=== PATIENT | female | born 1995 | race Caucasian/White ===

== ENCOUNTER 2022-10-26 16:17 | Emergency (ER) | payer OTHER ==
[~2022-10-26] VITALS: Ht 149.8 cm; Wt 63.5 kg
[2022-10-26 16:51] LABS: BASO % 0.2 % (0.0-1.0); EOS # 0.1 10*3/uL (0.0-0.4); EOS % 1.5 % (1.0-4.0); HEMATOCRIT 36.2 % (37.0-47.0); LYMPH % 37.7 % (27.0-41.0); MEAN CELL VOLUME 92.8 fl (81.0-99.0); MEAN CORPUSCULAR HGB CONC 32.3 g/dl (33.0-37.0); MEAN PLATELET VOLUME 9.6 fl (9.6-12.3); MONO # 0.8 10*3/uL (0.1-1.0); MONO % 10.3 % (3.0-9.0); NEUT % 50.3 % (47.0-73.0); PLATELET COUNT AUTOMATED 345 10*3/uL (130-400); RED CELL DISTRI WIDTH 14.2 % (0-14.5)
[2022-10-26 17:13] LABS: ALKALINE PHOSPHATASE 81 U/L (46-116); BUN 7 mg/dl (9-23); CHLORIDE 105 mmol/L (98-107); LIPASE 28 U/L (12-53); POTASSIUM 3.7 mmol/L (3.4-5.1); SGPT/ALT 25 U/L (10-49); TOTAL PROTEIN 7.4 gm/dL (6.0-8.0)
[2022-10-26 17:14] LABS: B-hCG (QUALITATIVE) NEGATIVE (NEGATIVE)
[2022-10-26 19:26] LABS: BILIRUBIN Negative (Negative); BLOOD 3+ (Negative); CLARITY Cloudy (Clear); COLOR Orange (Yellow); GLUCOSE Negative (Negative); KETONE Trace (Negative); LEUKO ESTERASE 1+ (Negative); NITRITE Negative (Negative); SPECIFIC GRAVITY >= 1.030 (1.001-1.030)
[2022-10-26 19:35] LABS: BACTERIA 1+; MUCOUS 2+; RBC TNTC rbc/hpf (0-2); YEAST 1+
[2022-10-26] MEDS ORDERED: Ondansetron4 MG PO (20:32)
[2022-10-26] MEDS ORDERED: Percocet 325 MG1 TAB PO (20:32)
== END 2022-10-26 20:43 | disposition home or self-care (01) ==
LOC: ED 16:17
PROVIDERS: Internal Medicine
DX: N83.201 Unspecified ovarian cyst, right side (principal); Z88.8 Allergy status to other drugs, medicaments and biological substances; R11.2 Nausea with vomiting, unspecified

== ENCOUNTER 2022-12-09 19:56 | Emergency (ER) | payer OTHER ==
[~2022-12-09] VITALS: Ht 149.8 cm; Wt 63.5 kg
[~2022-12-09 19:56] MED LIST: Ondansetron4 MG PO; Percocet 325 MG1 TAB PO
[2022-12-09 21:07] LABS: BASO % 0.3 % (0.0-1.0); EOS # 0.1 10*3/uL (0.0-0.4); EOS % 1.8 % (1.0-4.0); HEMATOCRIT 33.9 % (37.0-47.0); LYMPH # 2.3 10*3/uL (1.3-4.4); LYMPH % 32.1 % (27.0-41.0); MEAN CELL VOLUME 90.9 fl (81.0-99.0); MEAN CORPUSCULAR HGB 29.5 pg (27.0-31.0); MEAN CORPUSCULAR HGB CONC 32.4 g/dl (33.0-37.0); MEAN PLATELET VOLUME 9.6 fl (9.6-12.3); MONO # 0.7 10*3/uL (0.1-1.0); NEUT # 4.1 10*3/uL (2.3-7.9); NEUT % 56.7 % (47.0-73.0); PLATELET COUNT AUTOMATED 356 10*3/uL (130-400); RED BLOOD COUNT 3.73 10*6/uL (4.10-5.10); RED CELL DISTRI WIDTH 13.9 % (0-14.5); WHITE BLOOD COUNT 7.3 10*3/uL (4.8-10.8)
[2022-12-09 21:30] LABS: ALKALINE PHOSPHATASE 88 U/L (46-116); BUN 6 mg/dl (9-23); CHLORIDE 102 mmol/L (98-107); SGPT/ALT 23 U/L (10-49)
== END 2022-12-09 22:28 | disposition home or self-care (01) ==
LOC: ED 19:56
PROVIDERS: Internal Medicine
DX: R10.31 Right lower quadrant pain (principal); E87.6 Hypokalemia; Z88.1 Allergy status to other antibiotic agents; Z91.010 Allergy to peanuts; Z91.018 Allergy to other foods; Z88.8 Allergy status to other drugs, medicaments and biological substances

== ENCOUNTER 2022-12-11 11:35 | Emergency (ER) | payer OTHER ==
[~2022-12-11] VITALS: Ht 149.8 cm; Wt 63.5 kg
[2022-12-11] MEDS ORDERED: SERTRALINE HYD100 MG PO (11:58)
[2022-12-11] MEDS ORDERED: PANTOPRAZOLE SO40 MG PO (11:59)
[2022-12-11 13:35] LABS: BASO % 0.6 % (0.0-1.0); EOS # 0.1 10*3/uL (0.0-0.4); EOS % 2.2 % (1.0-4.0); HEMATOCRIT 34.4 % (37.0-47.0); LYMPH # 1.7 10*3/uL (1.3-4.4); LYMPH % 31.5 % (27.0-41.0); MEAN CELL VOLUME 92.5 fl (81.0-99.0); MEAN CORPUSCULAR HGB 28.8 pg (27.0-31.0); MEAN CORPUSCULAR HGB CONC 31.1 g/dl (33.0-37.0); MEAN PLATELET VOLUME 9.7 fl (9.6-12.3); MONO # 0.5 10*3/uL (0.1-1.0); MONO % 9.8 % (3.0-9.0); NEUT % 55.7 % (47.0-73.0); PLATELET COUNT AUTOMATED 343 10*3/uL (130-400); RED BLOOD COUNT 3.72 10*6/uL (4.10-5.10); RED CELL DISTRI WIDTH 14.2 % (0-14.5); WHITE BLOOD COUNT 5.4 10*3/uL (4.8-10.8)
[2022-12-11 13:58] LABS: ALKALINE PHOSPHATASE 84 U/L (46-116); BUN 7 mg/dl (9-23); CHLORIDE 103 mmol/L (98-107); SGPT/ALT 21 U/L (10-49)
[2022-12-11 14:02] LABS: POTASSIUM 4.2 mmol/L (3.4-5.1)
[2022-12-11 14:08] LABS: BILIRUBIN Negative (Negative); BLOOD Negative (Negative); CLARITY Clear (Clear); COLOR Yellow (Yellow); GLUCOSE Negative (Negative); KETONE Negative (Negative); LEUKO ESTERASE Negative (Negative); NITRITE Negative (Negative); UROBILINOGEN 0.2 E.U./dl (0.0-1.0)
[2022-12-11 14:16] LABS: BACTERIA TRACE; RBC 0-2 rbc/hpf (0-2); WBC 0-2 wbc/hpf (0-5)
[2022-12-11] MEDS ORDERED: HYDROCODONE-AC1 EAC1 PO (14:27)
== END 2022-12-11 14:49 | disposition home or self-care (01) ==
LOC: ED 11:35
PROVIDERS: Emergency Medicine
DX: R10.31 Right lower quadrant pain (principal); R11.2 Nausea with vomiting, unspecified; Z88.1 Allergy status to other antibiotic agents; Z91.010 Allergy to peanuts; Z91.018 Allergy to other foods; Z88.8 Allergy status to other drugs, medicaments and biological substances

== ENCOUNTER 2022-12-13 19:13 | Emergency (ER) | payer OTHER ==
[~2022-12-13] VITALS: Ht 149.8 cm; Wt 63.5 kg
[~2022-12-13 19:13] MED LIST changes: +HYDROCODONE-AC1 EAC1 PO; +PANTOPRAZOLE SO40 MG PO; +SERTRALINE HYD100 MG PO
[2022-12-14 00:36] LABS: LYMPH # 0.7 10*3/uL (1.3-4.4); LYMPH % 9.5 % (27.0-41.0); MEAN CELL VOLUME 89.2 fl (81.0-99.0); MEAN CORPUSCULAR HGB 29.2 pg (27.0-31.0); MEAN CORPUSCULAR HGB CONC 32.7 g/dl (33.0-37.0); MEAN PLATELET VOLUME 9.7 fl (9.6-12.3); MONO # 0.3 10*3/uL (0.1-1.0); MONO % 3.4 % (3.0-9.0); NEUT # 6.7 10*3/uL (2.3-7.9); NEUT % 86.8 % (47.0-73.0); PLATELET COUNT AUTOMATED 418 10*3/uL (130-400); RED CELL DISTRI WIDTH 14.4 % (0-14.5); WHITE BLOOD COUNT 7.7 10*3/uL (4.8-10.8)
[2022-12-14 00:57] LABS: ALKALINE PHOSPHATASE 85 U/L (46-116); BUN 11 mg/dl (9-23); CHLORIDE 104 mmol/L (98-107); POTASSIUM 4.2 mmol/L (3.4-5.1); SGPT/ALT 19 U/L (10-49); TOTAL PROTEIN 7.9 gm/dL (6.0-8.0)
[2022-12-14 01:58] LABS: BILIRUBIN Negative (Negative); BLOOD 2+ (Negative); CLARITY Clear (Clear); COLOR Yellow (Yellow); GLUCOSE Negative (Negative); KETONE Trace (Negative); LEUKO ESTERASE Negative (Negative); NITRITE Negative (Negative); PH 7.5 (4.5-8.0); SPECIFIC GRAVITY 1.025 (1.001-1.030)
[2022-12-14 02:07] LABS: BACTERIA 1+; MUCOUS 1+
== END 2022-12-14 03:24 | disposition home or self-care (01) ==
LOC: ED 19:13
PROVIDERS: Emergency Medicine
DX: R10.31 Right lower quadrant pain (principal); Z88.1 Allergy status to other antibiotic agents; Z91.010 Allergy to peanuts; Z91.018 Allergy to other foods; Z88.8 Allergy status to other drugs, medicaments and biological substances

== ENCOUNTER 2023-10-05 23:05 | Emergency (ER) | payer OTHER ==
[~2023-10-05] VITALS: Ht 149.8 cm; Wt 65.3 kg
[~2023-10-05 23:05] MED LIST changes: +IBU800 MG PO
[2023-10-05] MEDS ORDERED: SODIUM CHLORIDE 0.9% 1,000 ML IV ONE (23:50)
[2023-10-05] MEDS ORDERED: IOHEXOL 300 MG/ML 100 ML VIAL IV ONE (23:50)
[2023-10-05] MEDS ORDERED: Ondansetron Hydrochloride 4 MG/2 ML VIAL IV ONE (23:50)
[2023-10-06] LABS: BASO % 0.6 % (0.0-1.0); EOS # 0.2 10*3/uL (0.0-0.4); EOS % 3.7 % (1.0-4.0); HEMATOCRIT 38.4 % (37.0-47.0); LYMPH # 2.6 10*3/uL (1.3-4.4); LYMPH % 40.9 % (27.0-41.0); MEAN CELL VOLUME 96.2 fl (81.0-99.0); MEAN CORPUSCULAR HGB 30.8 pg (27.0-31.0); MEAN PLATELET VOLUME 9.3 fl (9.6-12.3); MONO # 0.5 10*3/uL (0.1-1.0); MONO % 8.1 % (3.0-9.0); NEUT % 46.4 % (47.0-73.0); PLATELET COUNT AUTOMATED 346 10*3/uL (130-400); RED BLOOD COUNT 3.99 10*6/uL (4.10-5.10); WHITE BLOOD COUNT 6.4 10*3/uL (4.8-10.8)
[2023-10-06 00:21] LABS: BILIRUBIN Negative (Negative); BLOOD 1+ (Negative); CLARITY Cloudy (Clear); COLOR Yellow (Yellow); GLUCOSE Negative (Negative); KETONE Negative (Negative); LEUKO ESTERASE Negative (Negative); NITRITE Negative (Negative); PH 5.5 (4.5-8.0); SPECIFIC GRAVITY 1.015 (1.001-1.030); UROBILINOGEN 0.2 E.U./dl (0.0-1.0)
[2023-10-06 00:30] LABS: BACTERIA 2+; RBC 0-2 rbc/hpf (0-2)
[2023-10-06 00:32] LABS: ALKALINE PHOSPHATASE 100 U/L (46-116); BUN 8 mg/dl (9-23); CHLORIDE 103 mmol/L (98-107); POTASSIUM 4.4 mmol/L (3.4-5.1); SGPT/ALT 10 U/L (5-49); TOTAL PROTEIN 7.5 gm/dL (6.0-8.0)
[2023-10-06] MEDS ORDERED: diphenhydrAMINE hydrochloride 50 MG/ML VIAL IV ONE (01:05)
[2023-10-06] MEDS ORDERED: Ketorolac Tromethamine 30 MG/ML VIAL IV ONE (01:50)
[2023-10-06] MEDS ORDERED: MORPHINE Sulfate 2 MG/ML SYR IV ONE (03:35)
== END 2023-10-06 04:27 | disposition home or self-care (01) ==
LOC: ED 23:05
PROVIDERS: Emergency Medicine
DX: N83.202 Unspecified ovarian cyst, left side (principal); E87.6 Hypokalemia; D64.9 Anemia, unspecified; F32.A Depression, unspecified; K21.9 Gastro-esophageal reflux disease without esophagitis; E11.9 Type 2 diabetes mellitus without complications; Z90.49 Acquired absence of other specified parts of digestive tract; Z87.442 Personal history of urinary calculi; Z88.8 Allergy status to other drugs, medicaments and biological substances; Z91.018 Allergy to other foods; Z91.010 Allergy to peanuts

== ENCOUNTER 2024-09-27 15:59 | Emergency (ER) | payer OTHER ==
[~2024-09-27] VITALS: Ht 149.8 cm; Wt 73.1 kg
[2024-09-27] MEDS ORDERED: Ondansetron Hydrochloride 4 MG/2 ML VIAL IV ONE (16:20)
[2024-09-27] MEDS ORDERED: IOHEXOL 300 MG/ML 100 ML VIAL IV ONE (16:20)
[2024-09-27] MEDS ORDERED: MORPHINE Sulfate 2 MG/ML SYR IV ONE (16:20)
[2024-09-27] MEDS ORDERED: SODIUM CHLORIDE 0.9% 1,000 ML IV ONE (16:20)
[2024-09-27] MEDS ORDERED: ZOLOFT100 MG PO (16:32)
[2024-09-27 16:55] LABS: BASO % 0.6 % (0.0-1.0); EOS # 0.1 10*3/uL (0.0-0.4); EOS % 1.7 % (1.0-4.0); HEMATOCRIT 35.5 % (37.0-47.0); MEAN CELL VOLUME 93.2 fl (81.0-99.0); MEAN CORPUSCULAR HGB 30.4 pg (27.0-31.0); MEAN CORPUSCULAR HGB CONC 32.7 g/dl (33.0-37.0); MEAN PLATELET VOLUME 9.8 fl (9.6-12.3); MONO # 0.4 10*3/uL (0.1-1.0); MONO % 8.5 % (3.0-9.0); NEUT # 2.4 10*3/uL (2.3-7.9); NEUT % 50.9 % (47.0-73.0); PLATELET COUNT AUTOMATED 279 10*3/uL (130-400); RED BLOOD COUNT 3.81 10*6/uL (4.10-5.10); RED CELL DISTRI WIDTH 14.5 % (0-14.5); WHITE BLOOD COUNT 4.7 10*3/uL (4.8-10.8)
[2024-09-27 17:06] LABS: BILIRUBIN Negative (Negative); BLOOD Negative (Negative); CLARITY Cloudy (Clear); COLOR Yellow (Yellow); GLUCOSE Negative (Negative); KETONE Negative (Negative); LEUKO ESTERASE Negative (Negative); NITRITE Negative (Negative); PH 7.5 (4.5-8.0); SPECIFIC GRAVITY 1.025 (1.001-1.030); UROBILINOGEN 0.2 E.U./dl (0.0-1.0)
[2024-09-27 17:17] LABS: ALKALINE PHOSPHATASE 83 U/L (46-116); BUN 11 mg/dl (9-23); CHLORIDE 105 mmol/L (98-107); LIPASE 24 U/L (12-53); POTASSIUM 3.4 mmol/L (3.4-5.1); SGPT/ALT 12 U/L (5-49); TOTAL PROTEIN 6.9 gm/dL (6.0-8.0)
[2024-09-27 17:20] LABS: EPITHELIAL CELLS 16-20; MUCOUS 1+; RBC 0-2 rbc/hpf (0-2); WBC 0-2 wbc/hpf (0-5)
[2024-09-27 17:22] LABS: B-hCG (QUALITATIVE) NEGATIVE (NEGATIVE)
[2024-09-27] MEDS ORDERED: CIPRO500 MG PO (18:39)
[2024-09-27] MEDS ORDERED: Ondansetron4 MG PO (18:39)
[2024-09-27] MEDS ORDERED: Ondansetron Hydrochloride 4 MG TAB PO ONE (18:40)
[2024-09-27] MEDS ORDERED: Ciprofloxacin Hydrochloride 500 MG TAB PO ONE (18:40)
== END 2024-09-27 19:06 | disposition home or self-care (01) ==
LOC: ED 15:59
PROVIDERS: Physician Assistant Medical
DX: K52.9 Noninfective gastroenteritis and colitis, unspecified (principal); K21.9 Gastro-esophageal reflux disease without esophagitis; F32.A Depression, unspecified; Z79.899 Other long term (current) drug therapy; Z88.8 Allergy status to other drugs, medicaments and biological substances; Z88.1 Allergy status to other antibiotic agents; Z91.010 Allergy to peanuts; Z90.49 Acquired absence of other specified parts of digestive tract; Z98.890 Other specified postprocedural states

== ENCOUNTER 2025-03-21 18:43 | Emergency (ER) | payer OTHER ==
[~2025-03-21] VITALS: Ht 149.8 cm; Wt 67.1 kg
[~2025-03-21 18:43] MED LIST changes: +CIPRO500 MG PO; +ZOLOFT100 MG PO
[2025-03-21 19:07] LABS: BILIRUBIN Negative (Negative); BLOOD 3+ (Negative); CLARITY Cloudy (Clear); COLOR Yellow (Yellow); KETONE Negative (Negative); LEUKO ESTERASE Negative (Negative); NITRITE Negative (Negative); PH 6.5 (4.5-8.0); SPECIFIC GRAVITY 1.015 (1.001-1.030); UROBILINOGEN 0.2 E.U./dl (0.0-1.0)
[2025-03-21 19:19] LABS: BACTERIA TRACE; EPITHELIAL CELLS 31-40; MUCOUS 1+; RBC 16-20 rbc/hpf (0-2); WBC 0-2 wbc/hpf (0-5)
[2025-03-21 19:26] LABS: BASO # 0.0 10*3/uL (0.0-0.1); BASO % 0.7 % (0.0-1.0); EOS # 0.1 10*3/uL (0.0-0.4); EOS % 2.2 % (1.0-4.0); MEAN CELL VOLUME 98.6 fl (81.0-99.0); MEAN CORPUSCULAR HGB 32.1 pg (27.0-31.0); MEAN PLATELET VOLUME 9.6 fl (9.6-12.3); MONO # 0.3 10*3/uL (0.1-1.0); MONO % 7.2 % (3.0-9.0); NEUT # 2.2 10*3/uL (2.3-7.9); NEUT % 53.1 % (47.0-73.0); NUCLEATED RED BLOOD CELL 0.0 % (0.0-0.0); NUCLEATED RED BLOOD CELL 0.0 10*3/uL (0.0-0.0); PLATELET COUNT AUTOMATED 247 10*3/uL (130-400); RED CELL DISTRI WIDTH 13.9 % (0-14.5)
[2025-03-21] MEDS ORDERED: Ondansetron Hydrochloride 4 MG TAB SL ONE (19:45)
[2025-03-21 19:52] LABS: BUN 6 mg/dl (9-23); SGPT/ALT 7 U/L (5-49)
[2025-03-21] MEDS ORDERED: LORYNA PO (21:05)
[2025-03-21] MEDS ORDERED: LORAZEPAM0.5 M1 PO (21:07)
[2025-03-21] MEDS ORDERED: POTASSIUM CHLORIDE 20 MEQ TAB PO ONE (21:15)
== END 2025-03-21 21:35 | disposition home or self-care (01) ==
LOC: ED 18:43
PROVIDERS: Internal Medicine
DX: R10.9 Unspecified abdominal pain (principal); E87.6 Hypokalemia; M54.9 Dorsalgia, unspecified; R11.0 Nausea; Z87.42 Personal history of other diseases of the female genital tract; Z87.442 Personal history of urinary calculi; Z88.1 Allergy status to other antibiotic agents; Z88.6 Allergy status to analgesic agent; Z91.010 Allergy to peanuts; Z79.899 Other long term (current) drug therapy; Z98.890 Other specified postprocedural states; Z90.49 Acquired absence of other specified parts of digestive tract